=== PATIENT | female | born 1960 | race Two or more races ===

== ENCOUNTER 2017-12-07 22:25 | Inpatient (IN) | payer OTHER ==
[~2017-12-07] VITALS: Ht 154.9 cm; Wt 74.4 kg
[2017-12-08 01:30] VITALS: BP 159/93
[2017-12-08 01:35] VITALS: BP 159/93
--- NOTE | 2017-12-08 01:35 | NUR ---
MS RN OPENING NOTES: RECEIVED PT FROM [facility] AND DIRECT ADMIT FROM [facility]. PT ON ROOM AIR AND TOLERATING WELL. PT IN MILD DISTRESS SHE IS FEELING NAUSEOUS. PT ALSO HAS 8/10 LEFT LOWER ABDOMEN PAIN. PT HAS IV ON L WRIST #20G AND IS PATENT AND INTACT. CURRENTLY H/L AND AWAITING FOR ADMITTING ORDERS. PT IS A/OX4. CALL LIGHT WITHIN PT'S REACH. BED KEPT IN LOW, LOCKED POSITION, AND SIDE RAILS X 2UP. WILL CONTINUE TO MONITOR PT.
[2017-12-08] MEDS ORDERED: AMLO5TAB2 PO (01:59)
[2017-12-08] MEDS ORDERED: NICO-760 TD (02:03)
--- NOTE | 2017-12-08 02:30 | NUR ---
MS RN NOTES: SPOKE WITH DR. SCOTT. HE IS AWARE PT IS HERE. HE WILL BE WORKING ON ADMITTING ORDERS SOON. AWARE THAT BP IS 159/93 HR 78. AWAITING FOR ADMITTING ORDERS FOR NOW.
[2017-12-08] MEDS ORDERED: Z GUARD REMEDY 2 OZ OINT TP PRN (03:00)
[2017-12-08] MEDS ORDERED: HYDROCODONE/APAP 5/325MG 1 EACH TABLET PO PRN (03:00)
[2017-12-08] MEDS ORDERED: MORPHINE SULFATE INJ 2 MG/ML DISP.SYRIN IV PRN ×2 (03:00→21:00)
[2017-12-08] MEDS ORDERED: MAG HYDROX/AL HYDROX/SIMETH 30 ML UDC PO PRN (03:00)
[2017-12-08] MEDS ORDERED: ZOLPIDEM TARTRATE 5 MG TABLET PO PRN (03:00)
[2017-12-08] MEDS ORDERED: MAGNESIUM HYDROXIDE 30 ML UDC PO PRN (03:00)
[2017-12-08] MEDS ORDERED: ACETAMINOPHEN 325 MG TABLET PO PRN (03:00)
[2017-12-08] MEDS ORDERED: LEVOFLOXACIN 500 MG /D5W 100ML 100 ML IV ONE (03:15)
[2017-12-08] MEDS: LEVOFLOXACIN 500 MG /D5W 100ML 500 MG in PREMIX 1 EA IV SCH ×2 (03:27→20:02)
[2017-12-08] MEDS: ONDANSETRON HCL/PF 4 MG/2 ML VIAL IVP PRN ×2 (03:51→10:50)
[2017-12-08] MEDS ORDERED: MORPHINE SULFATE INJ 10 MG/ML DISP.SYRIN IV PRN (04:00)
--- NOTE | 2017-12-08 05:00 | NUR ---
MS RN NOTES: PT COMPLAINING OF L LOWER ABDOMEN 8/10 PAIN. PT WAS ADMINISTERED MORPHINE 2MG IV. WILL CONTINUE TO MONITOR PT.
[2017-12-08] MEDS ORDERED: METRONIDAZOLE 500MG/ NS 100ML 100 ML IV ONE (05:17)
[2017-12-08] MEDS: METRONIDAZOLE 500MG/ NS 100ML 500 MG in PREMIX 1 EA IV SCH ×3 (05:26→21:13)
--- NOTE | 2017-12-08 06:40 | NUR ---
MS RN CLOSING NOTES: ALL NEEDS WERE ATTENDED AND ANTICIPATED FOR. PT ASLEEP AT THIS TIME. PT HAS IV ON R HAND #22G AND IS BEING INFUSED WITH IV NS AT 100ML/HR. PT ON ROOM AIR AND TOLERATING WELL. CALL LIGHT WITHIN PT'S REACH. BED KEPT IN LOW, LOCKED POSITION, AND SIDE RAILS X 2UP. WILL ENDORSE TO AM NURSE FOR MOHINDER.
--- NOTE | 2017-12-08 08:00 | NUR ---
MS RN AM NOTES: RECEIVED PT VOMITING IN THE EMESIS BAG WITH CLEAR YELLOW EMESIS.ON ROOM AIR AND TOLERATING WELL. PT IN MILD DISTRESS SHE IS FEELING NAUSEOUS. WILL GIVE ZOFRAN IV PRN WHEN IT IS DUE.PT HAS IV ON L WRIST #20G AND IS PATENT AND INTACT. WITH ONGOING IVF OF NS AT 100 ML/HR INFUSING WELL.PT IS A/OX4. WITH BRP.ON NPO.CALL LIGHT WITHIN PT'S REACH. BED KEPT IN LOW, LOCKED POSITION, AND SIDE RAILS X 2UP. WILL CONTINUE TO MONITOR PT.
[2017-12-08 08:29] VITALS: BP 138/74
[2017-12-08] MEDS ORDERED: IV NS 0.9% 1,000 ML BAG IV SCH (09:00)
[2017-12-08 12:19] LABS: BASOPHILS # (AUTO) 0.1 /CMM (0.0-0.2); BASOPHILS % (AUTO) 0.4 % (0.0-2.0); EOSINOPHILS % (AUTO) 0.1 % (0.0-6.0); HEMATOCRIT 43 % (33-45); HEMOGLOBIN 14.3 g/dL (11.5-14.8); LYMPHOCYTES # (AUTO) 1.5 /CMM (0.8-4.8); LYMPHOCYTES % (AUTO) 6.3 % (20.0-44.0); MEAN CORPUSCULAR HEMOGLOBIN 31 PG (26.0-33.0); MEAN CORPUSCULAR HGB CONC 33 g/dl (31.0-36.0); MEAN CORPUSCULAR VOLUME 94 fL (82-100); MONOCYTES # (AUTO) 0.7 /CMM (0.1-1.30); MONOCYTES % (AUTO) 2.9 % (2.0-12.0); NEUTROPHILS # (AUTO) 21.7 /CMM (1.8-8.9); NEUTROPHILS % (AUTO) 90.3 % (43.0-81.0); PLATELET COUNT (AUTO) 241 /CMM (150-450); RDW COEFFICIENT OF VARIATION 13.6 (11.5-15.0)
[2017-12-08 12:35] LABS: ALBUMIN 3.4 g/dL (3.4-5.0); BILIRUBIN,TOTAL 0.4 mg/dL (0.2-1.0); CALCIUM, SERUM 8.5 mg/dL (8.5-10.1); CREATININE 0.5 mg/dL (0.6-1.3); POTASSIUM 3.9 mmol/L (3.5-5.1); TOTAL PROTEIN, SERUM 7.4 g/dL (6.4-8.2)
[2017-12-08 13:13] LABS: BAND % (MANUAL) 1 % (0.0-5.0); EOSINOPHILS % (MANUAL) 1 % (0-4); LYMPHOCYTES % (MANUAL) 5 % (16-48); MONOCYTES % (MANUAL) 10 % (0-11.0); NEUTROPHILS % (MANUAL) 83 (42-76)
[2017-12-08] MEDS ORDERED: ONDANSETRON HCL/PF 4 MG/2 ML VIAL IVP PRN (14:00)
[2017-12-08] MEDS: ONDANSETRON HCL/PF 4 MG/2 ML VIAL IV PRN ×2 (16:41→23:19)
[2017-12-08] MEDS: LACTOBACILLUS RHAMNOSUS GG 1 EACH CAP.SPRINK PO SCH (16:41)
--- NOTE | 2017-12-08 17:14 | NUR ---
PT OCCASIONALLY FEELS NAUSEOUS BUT HAS NO EMESIS AT ALL SINCE 0800.PT TOOK THE LACTOBACILLUS CAPSULE AND A FEW SIPS OF WATER -TOLERATED WELL.WILL CONTINUE TO MONITOR.
[2017-12-08] MEDS: IV NS 0.9% 1,000 ML IV PRN (17:54)
--- NOTE | 2017-12-08 18:48 | NUR ---
PT RESTING COMFORTABLY STILL FEELING NAUSEOUS.WITH ONGOING IVF OF NS AT 100 ML/HR INFUSING WELL.ZOFRAN IV GIVEN PRN. CALL LIGHT PLACED WITHIN REACH.
--- NOTE | 2017-12-08 19:13 | NUR ---
MS RN OPENING NOTES: RECEIVED PT AND IS ASLEEP AT THIS TIME. PT IS A/OX4. PT IS ON ROOM AIR AND TOLERATING WELL. PT HAS IV AND IS BEING INFUSED WITH IV NS AT 100ML/HR. CALL LIGHT WITHIN PT'S REACH. BED KEPT IN LOW, LOCKED POSITION, AND SIDE RAILS X 2UP. WILL CONTINUE TO MONITOR PT.
[2017-12-08 20:00] VITALS: BP 181/103
[2017-12-08] MEDS ORDERED: MORPHINE SULFATE INJ 4 MG/ML DISP.SYRIN IV PRN (21:00)
[2017-12-08] MEDS ORDERED: MORPHINE SULFATE INJ 4 MG/ML DISP.SYRIN ONE (21:08)
--- NOTE | 2017-12-08 21:28 | NUR ---
MS RN NOTES: BLOOD PRESSURE ELEVATED INITIALLY. OFFERED PT PAIN MEDICATION BUT IS REFUSING AT THIS TIME. "I AM OK FOR NOW." WILL OFFER AGAIN AT ANOTHER TIME.
[2017-12-08 23:00] VITALS: BP 166/99
--- NOTE | 2017-12-08 23:19 | NUR ---
MS RN NOTES: PT COMPLAINING OF 8/10 L LOWER ABDOMEN PAIN. PT STILL NAUSEOUS WELL. PT WAS ADMINISTERED ZOFRAN 4MG VIA IV AND WAS ALSO THEN ADMINISTERED MORPHINE 2MG VIA IV. WILL CONTINUE TO MONITOR PT.
--- NOTE | 2017-12-09 01:40 | NUR ---
MS RN NOTES: SPOKE WITH DR. SCOTT. INFORMED HIM THAT PT'S BP IS STILL ELEVATED. LATEST ONE IS 166/69 HR 75. PT STILL COMPLAINING OF PAIN. ALSO, PT REQUESTING TO SLEEP. PER DR. SCOTT, OK TO CHANGE MORPHINE 2MG FREQUENCY TO Q3HR PRN. ALSO, OK TO GIVE AMBIEN 5MG PO. DR. SCOTT AWARE THAT PT IS NPO. OK TO TRY AMBIEN 5MG ONE TIME.
--- NOTE | 2017-12-09 01:47 | NUR ---
MS RN NOTES: PT REQUESTING FOR A SLEEP AID SHE REALLY WANTS TO SLEEP. PT WAS ADMINISTERED AMBIEN 5MG PO. PER DR. SCOTT, OK TO GIVE AMBIEN 5MG PO ONE TIME. HE IS AWARE THAT PT IS NPO AND THAT PT GOT ZOFRAN ABOUT 2 HOURS AGO. WILL CONTINUE TO MONITOR.
[2017-12-09] MEDS: METRONIDAZOLE 500MG/ NS 100ML 500 MG in PREMIX 1 EA IV SCH ×3 (04:02→21:52)
[2017-12-09 06:15] VITALS: BP 136/92
--- NOTE | 2017-12-09 06:23 | NUR ---
MS RN CLOSING NOTES: ALL NEEDS WERE ATTENDED AND ANTICIPATED FOR. PT IS RESTING IN BED COMFORTABLY AND FEELS WAY MUCH BETTER. PT NOT NAUSEOUS. PT VERBALIZED NO PAIN. PT HAS IV AND IS BEING INFUSED WITH IV NS AT 100ML/HR. CALL LIGHT WITHIN PT'S REACH. BED KEPT IN LOW, LOCKED POSITION, AND SIDE RAILS X 2 UP. PT'S DIET ADVANCED THIS MORNING SHE STATES SHE FEELS WAY MUCH BETTER. WILL ENDORSE TO AM NURSE FOR MOHINDER.
[2017-12-09 07:01] LABS: BASOPHILS % (AUTO) 0.2 % (0.0-2.0); EOSINOPHILS % (AUTO) 0.1 % (0.0-6.0); HEMATOCRIT 42 % (33-45); HEMOGLOBIN 13.7 g/dL (11.5-14.8); LYMPHOCYTES # (AUTO) 1.9 /CMM (0.8-4.8); LYMPHOCYTES % (AUTO) 11.3 % (20.0-44.0); MEAN CORPUSCULAR HEMOGLOBIN 31 PG (26.0-33.0); MEAN CORPUSCULAR HGB CONC 33 g/dl (31.0-36.0); MEAN CORPUSCULAR VOLUME 95 fL (82-100); MONOCYTES # (AUTO) 0.9 /CMM (0.1-1.30); MONOCYTES % (AUTO) 5.5 % (2.0-12.0); NEUTROPHILS % (AUTO) 82.9 % (43.0-81.0); PLATELET COUNT (AUTO) 310 /CMM (150-450); RDW COEFFICIENT OF VARIATION 13.2 (11.5-15.0); RED BLOOD CELL COUNT(AUTO) 4.45 MIL/uL (4.0-5.2); WHITE BLOOD COUNT (AUTO) 16.9 K/uL (4.3-11.0)
[2017-12-09 07:14] LABS: CALCIUM, SERUM 8.1 mg/dL (8.5-10.1); CREATININE 0.5 mg/dL (0.6-1.3); PHOSPHORUS 2.9 mg/dL (2.5-4.9); POTASSIUM 3.3 mmol/L (3.5-5.1)
[2017-12-09 08:00] VITALS: BP 165/98
--- NOTE | 2017-12-09 08:00 | NUR ---
MS RN AM NOTES: PT IS RESTING IN BED COMFORTABLY AND FEELS WAY MUCH BETTER. PT NOT NAUSEOUS. PT VERBALIZED NO PAIN. PT HAS IV AND IS BEING INFUSED WITH IV NS AT 100ML/HR. CALL LIGHT WITHIN PT'S REACH. BED KEPT IN LOW, LOCKED POSITION, AND SIDE RAILS X 2 UP. PT'S DIET ADVANCED THIS MORNING SHE STATES SHE FEELS WAY MUCH BETTER. WILL CONTINUE TO MONITOR.
[2017-12-09] MEDS: LACTOBACILLUS RHAMNOSUS GG 1 EACH CAP.SPRINK PO SCH ×2 (08:44→16:56)
[2017-12-09] MEDS: IV NS 0.9% 1,000 ML IV PRN ×2 (08:48→20:34)
[2017-12-09] MEDS ORDERED: POTASSIUM CHLORIDE 20 MEQ TAB.PRT.SR PO SCH (10:30)
[2017-12-09] MEDS: ONDANSETRON HCL/PF 4 MG/2 ML VIAL IV PRN ×2 (12:09→19:51)
--- NOTE | 2017-12-09 12:13 | NUR ---
CLARIFIED KDUR 20 MEQ PO GIVEN EARLIER-STILL TO ADMINISTER ANOTHER KDUR 20 ME[address] PO TAB [address] MARSHALL.
[2017-12-09] MEDS ORDERED: hydrALAZINE HCL 25 MG TABLET PO PRN (12:30)
[2017-12-09] MEDS ORDERED: POTASSIUM CHLORIDE 20 MEQ TAB.PRT.SR PO ONE (12:30)
[2017-12-09] MEDS: NICOTINE PATCH (21MG) 21 MG PATCH.TD24 TD SCH (13:30)
[2017-12-09] MEDS: AMLODIPINE BESYLATE 5 MG TABLET PO SCH (13:31)
[2017-12-09 16:13] VITALS: BP 163/95
--- NOTE | 2017-12-09 18:39 | NUR ---
PT RESTING IN BED EXPRESSED SO MUCH ANXIETY WORRIED ABOUT HER CONDITION.EXPLAINED THE IMPROVEMENT OF HER WBC TRENDING DOWN AND ALSO THE IV ATB SHE IS GETTING.ON NPO EXCEPT WITH MEDS AND ICE CHIPS.JUST FEELS NAUSEOUS WITH NO VOMITING EPISODE.ZOFRAN GIVEN PRN.CALL LIGHT PLACED WITHIN REACH.
--- NOTE | 2017-12-09 19:40 | NUR ---
MS RN INITIAL NOTES Received patient from MS 201-1 to MS 309-2. A/O X4 able to communicate needs. NPO except meds, may use ice chips. With patent peripheral IV line RFA #22 SL. With complaint of nausea and abdominal pain. BP noted high 178/108mmHg. Kept on bed comfortably. Administered Morphine for pain, Zofran for nausea and Hydralazine for increased BP. Will continue to monitor accordingly.
[2017-12-09 20:00] VITALS: BP 178/108
[2017-12-09] MEDS: MORPHINE SULFATE INJ 4 MG/ML DISP.SYRIN IV PRN (20:03)
[2017-12-09] MEDS: LEVOFLOXACIN 500 MG /D5W 100ML 500 MG in PREMIX 1 EA IV SCH (20:34)
[2017-12-10] MEDS: ONDANSETRON HCL/PF 4 MG/2 ML VIAL IV PRN ×2 (01:39→10:25)
[2017-12-10] MEDS: MORPHINE SULFATE INJ 4 MG/ML DISP.SYRIN IV PRN ×2 (01:40→08:40)
--- NOTE | 2017-12-10 01:40 | NUR ---
MS RN NOTES Patient claimed nauseated and having abdominal pain 10/14. Medicated Morphine for pain and Zofran for nausea as ordered. Will continue to minotor.
--- NOTE | 2017-12-10 01:53 | NUR ---
MS TERRELL NOTES Patient complained nausea and abdominal pain. Repositioned patient comfortably. Administered Morphine for pain and Zofran for nausea. Will continue to monitor. Addendum: 12/10/17 at 0641 by EDWARDO ENRIQUE RN Duplicate documentation.
[2017-12-10] MEDS: IV NS 0.9% 1,000 ML IV PRN (03:21)
[2017-12-10] MEDS: METRONIDAZOLE 500MG/ NS 100ML 500 MG in PREMIX 1 EA IV SCH ×3 (05:07→22:42)
--- NOTE | 2017-12-10 06:39 | NUR ---
MS RN CLOSING NOTES Patient asleep on low-Kaur's position, with patent peripheral line RFA G#22 with NS infusing well @ 100ml/hr as ordered. Nauseated all night, kept on NPO except meds and ice chips. Medicated for nausea and pain, noted to be effective. All due meds given as ordered, no ASE noted. Able to ambulate independently to toilet without problem. All needs attended. Kept call light at bedside at all times. Afebrile the whole shift. Endorsed to the next shift.
[2017-12-10 06:46] LABS: CALCIUM, SERUM 8.4 mg/dL (8.5-10.1); CREATININE 0.5 mg/dL (0.6-1.3); MAGNESIUM 1.9 mg/dL (1.8-2.4); PHOSPHORUS 2.4 mg/dL (2.5-4.9); POTASSIUM 3.4 mmol/L (3.5-5.1)
--- NOTE | 2017-12-10 07:15 | NUR ---
MS RN NOTES PATIENT RECEIVED RESTING INSIDE ROOM. SLEEPING, EASILY AROUSABLE THROUGH VERBAL AND TACTILE STIMULI. ALERT AND ORIENTED X 4. BREATHING EVEN AND UNLABORED. NO SOB OR ACUTE DISTRESS NOTED. NO CHANGES IN LOC NOTED. PATIENT DENIES ANY PAIN OR DISCOMFORT. CONTINUE NPO STATUS EXCEPT MEDICATIONS. IV INTACT AND PATENT. WILL CONTINUE TO MONITOR. BED LOCKED AND IN LOW POSITION. BILATERAL UPPER SIDE RAILS UP AND LOCKED. CALL LIGHT WITHIN EASY REACH
[2017-12-10 08:00] VITALS: BP 155/96
[2017-12-10 08:17] LABS: BASOPHILS # (AUTO) 0.2 /CMM (0.0-0.2); BASOPHILS % (AUTO) 1.1 % (0.0-2.0); EOSINOPHILS % (AUTO) 0.1 % (0.0-6.0); HEMATOCRIT 46 % (33-45); HEMOGLOBIN 14.8 g/dL (11.5-14.8); LYMPHOCYTES # (AUTO) 1.5 /CMM (0.8-4.8); LYMPHOCYTES % (AUTO) 11.2 % (20.0-44.0); MEAN CORPUSCULAR HEMOGLOBIN 31 PG (26.0-33.0); MEAN CORPUSCULAR HGB CONC 32 g/dl (31.0-36.0); MEAN CORPUSCULAR VOLUME 95 fL (82-100); MONOCYTES # (AUTO) 0.7 /CMM (0.1-1.30); MONOCYTES % (AUTO) 5.3 % (2.0-12.0); NEUTROPHILS # (AUTO) 11.3 /CMM (1.8-8.9); NEUTROPHILS % (AUTO) 82.3 % (43.0-81.0); PLATELET COUNT (AUTO) 324 /CMM (150-450); RDW COEFFICIENT OF VARIATION 13.4 (11.5-15.0); RED BLOOD CELL COUNT(AUTO) 4.85 MIL/uL (4.0-5.2); WHITE BLOOD COUNT (AUTO) 13.8 K/uL (4.3-11.0)
[2017-12-10] MEDS: AMLODIPINE BESYLATE 5 MG TABLET PO SCH (08:38)
[2017-12-10] MEDS: LACTOBACILLUS RHAMNOSUS GG 1 EACH CAP.SPRINK PO SCH ×2 (08:38→16:47)
[2017-12-10] MEDS: NICOTINE PATCH (21MG) 21 MG PATCH.TD24 TD SCH (08:39)
[2017-12-10] MEDS ORDERED: AMLODIPINE BESYLATE 5 MG TABLET PO ONE (10:00)
[2017-12-10] MEDS: Magnesium 1GM/D5W 100ML PREMIX 100 ML IV SCH ×2 (10:25→11:26)
[2017-12-10] MEDS: Potassium Phosphate meq 11 MEQ in IV D5W 100 ML IV SCH ×2 (13:57→19:00)
[2017-12-10 16:00] VITALS: BP 123/74
--- NOTE | 2017-12-10 18:40 | NUR ---
MS RN NOTES PATIENT RESTING INSIDE ROOM. AWAKE, ALERT AND ORIENTED X 4, VERBALLY RESPONSIVE AND RESPONDS TO VERBAL AND TACTILE STIMULI. ABLE TO MAKE NEEDS KNOWN AND FOLLOW SIMPLE INSTRUCTIONS. BREATHING EVEN AND UNLABORED. NO SOB OR ACUTE DISTRESS AT THIS TIME. PATIENT DENIES ANY PAIN OR DISCOMFORT. NO CHANGES IN LOC NOTED. PATIENT CALM AND RELAXED. WILL ENDORSE TO INCOMING SHIFT FOR MOHINDER. BED LOCKED AND IN LOW POSITION. BILATERAL UPPER SIDE RAILS UP AND LOCKED. CALL LIGHT WITHIN EASY REACH
--- NOTE | 2017-12-10 19:30 | NUR ---
MS LISA INITIAL NOTES RECEIVED REPORT FROM AM NURSE WHILE CHECKING THE PATIENT , SHE AWAKE AND ALERT WATCHING TV AT THIS TIME WITH K-PHOSPATE INFUSING AT 35ML/HR. PT DENIES ANY PAIN OR ANY DISCOMFORT. NO N/V WELL. PT AWARE THAT SHE HAVE BLOOD TEST IN AM . I ALSO TOLD HER ABOUT HER MEDICATION TONIGHT AND PT UNDERSTOOD WELL. KEPT HER WARM AND COMFORTABLE AT ALL TIMES. PLACE CALL LIGHT AT REACH. WILL CONTINUE MONITORING.
[2017-12-10 20:00] VITALS: BP 124/76
[2017-12-10] MEDS: LEVOFLOXACIN 500 MG /D5W 100ML 500 MG in PREMIX 1 EA IV SCH (21:17)
--- NOTE | 2017-12-10 23:00 | NUR ---
MS LISA NOTES K -PHOSPATE IVP BAG JUST FINISHED INFUSING THEN STARTED LEVAQUIN IVP BAG , AFTER 30 MINUTES INFUSING PATIENT CALLED SAYING SHE FEEL ITCHY ON HER ARM AND SEEN SOME REDNESS LIKE A BUMP ON HER RIGHT FOREARM BUT PT DENIES ANY PAIN OR ANY SOB . NO SIGNS OF ANY ACUTE DISTRESS NOTED. WHEN I CHECKED IF ITS THE FIRST TIME SHE GOT THIS ANTIBIOTIC FOUND OUT THIS IS HER 4TH DOSE . HOLD THE LEVAQUIN FOR A WHILE AND TOLD HER THAT I WILL CALLED THE VENEER PRODUCTION MACHINE OPERATOR MD TO LET HIM KNOW.
--- NOTE | 2017-12-10 23:30 | NUR ---
PREPARED FOODS SUPERVISOR NOTES SPOKE TO CLAUDIA CASTELLANOS/ IFTIKHAR RELATE TO HIM WHAT HAPPENED TO THE PATIENT WHILE GETTING LEVAQUIN. GOT ORDERED TO GIVE BENADRYL 25MG IVP AND PEPCID 20 MG IVP THEN ITS OK TO CONTINUE TO INFUSE THE LEVAQUIN. CONTINUE MONITORING THE PATIENT FOR ANY POSSIBLE REACTION.
[2017-12-10] MEDS ORDERED: diphenhydrAMINE HCL 50 MG/ML VIAL IV STA (23:32)
[2017-12-11] MEDS ORDERED: FAMOTIDINE/PF INJ 20 MG/2 ML VIAL IV ONE
--- NOTE | 2017-12-11 01:59 | NUR ---
MS ORACLE APPLICATIONS ANALYST NOTES PT SLEEPING COMFORTABLY IN BED AFTER BENADRYL GIVEN , DUE LEVAQUIN FINISHED . KEPT HER WARM AND COMFORTABLE AT ALL TIMES. WILL CONTINUE MONITORING. PLACE CALL LIGHT AT REACH.
[2017-12-11] MEDS: IV NS 0.9% 1,000 ML IV PRN (05:17)
[2017-12-11] MEDS: METRONIDAZOLE 500MG/ NS 100ML 500 MG in PREMIX 1 EA IV SCH (05:40)
[2017-12-11 06:55] LABS: BASOPHILS % (AUTO) 0.2 % (0.0-2.0); EOSINOPHILS % (AUTO) 1.1 % (0.0-6.0); HEMATOCRIT 44 % (33-45); HEMOGLOBIN 14.4 g/dL (11.5-14.8); LYMPHOCYTES # (AUTO) 1.9 /CMM (0.8-4.8); LYMPHOCYTES % (AUTO) 18.3 % (20.0-44.0); MEAN CORPUSCULAR HEMOGLOBIN 31 PG (26.0-33.0); MEAN CORPUSCULAR HGB CONC 33 g/dl (31.0-36.0); MEAN CORPUSCULAR VOLUME 95 fL (82-100); MONOCYTES # (AUTO) 0.8 /CMM (0.1-1.30); MONOCYTES % (AUTO) 7.8 % (2.0-12.0); NEUTROPHILS # (AUTO) 7.4 /CMM (1.8-8.9); NEUTROPHILS % (AUTO) 72.6 % (43.0-81.0); PLATELET COUNT (AUTO) 325 /CMM (150-450); RDW COEFFICIENT OF VARIATION 12.9 (11.5-15.0); RED BLOOD CELL COUNT(AUTO) 4.61 MIL/uL (4.0-5.2); WHITE BLOOD COUNT (AUTO) 10.3 K/uL (4.3-11.0)
--- NOTE | 2017-12-11 07:00 | NUR ---
MS GAS METER REPAIRER CLOSING NOTES PT REMAINS SLEEPING COMFORTABLY IN BED WITHOUT ANY ACUTE DISTRESS NOTED. ALL DUE MEDS GIVEN AND ALL NEEDS MET. IVF STILL INFUSING ON HER RIGHT FOREARM. NO REDNESS NOTED. KEPT HER COMFORTABLE AT ALL TIMES. ENDORSE TO AM NURSE FOR CONTINUITY OF CARE. PLACE CALL LIGHT AT REACH.
--- NOTE | 2017-12-11 07:10 | NUR ---
RN NOTES PT IS LAYING DOWN IN BED, AWAKE AND ALERT, RESTING COMFORTABLY. PT ON RA, RESPIRATIONS ARE EVEN AND UNLABORED. IV ON RFA INTACT AND RUNNING NS @ 50ML/HR. NO SIGNS OF DISTRESS NOTED. SAFETY MEASURES ARE IN PLACE, CALL IS IN REACH. WILL CONTINUE TO MONITOR.
[2017-12-11 07:20] LABS: CREATININE 0.6 mg/dL (0.6-1.3); MAGNESIUM 2.1 mg/dL (1.8-2.4); PHOSPHORUS 3.5 mg/dL (2.5-4.9); POTASSIUM 3.3 mmol/L (3.5-5.1)
[2017-12-11 08:00] VITALS: BP 108/76
[2017-12-11] MEDS: NICOTINE PATCH (21MG) 21 MG PATCH.TD24 TD SCH (08:24)
[2017-12-11] MEDS: LACTOBACILLUS RHAMNOSUS GG 1 EACH CAP.SPRINK PO SCH ×2 (08:24→17:00)
[2017-12-11] MEDS ORDERED: AMLODIPINE BESYLATE 5 MG TABLET PO SCH (09:00)
[2017-12-11 09:30] VITALS: BP 113/64
[2017-12-11 10:00] VITALS: BP 121/60
[2017-12-11 11:00] VITALS: BP 114/51
[2017-12-11] MEDS ORDERED: POTASSIUM CHLORIDE 20 MEQ TAB.PRT.SR PO SCH (11:00)
[2017-12-11] MEDS: DOCUSATE SODIUM 250 MG CAPSULE PO SCH ×2 (11:11→17:00)
[2017-12-11] MEDS ORDERED: POLYETHYLENE GLYCOL 3350 17 GM POWD.PACK PO SCH ×2 (11:30→22:00)
[2017-12-11] MEDS ORDERED: LEVOFLOXACIN (500MG) 500 MG TABLET PO SCH (12:00)
[2017-12-11 16:00] VITALS: BP 112/74
--- NOTE | 2017-12-11 18:00 | NUR ---
RN NOTES PT WAS DISCHARGED HOME IN STABLE CONDITION. IV AND ID BAND WERE REMOVED. PT WAS GIVEN DISCHARGE INSTRUCTIONS AND WAS TOLD TO CAN MAKER PRESCRIPTION AT PHARMACY AND FOLLOW UP WITH PCP WITHIN 1-2 WEEKS OF DISCHARGE. PT VERBALIZED UNDERSTANDING AND STATED THAT SHE WOULD GET HER PRESCRIPTION AND MAKE THE APPOINTMENT AT HOME. PT WAS TRANSPORTED HOME IN PRIVATE CAR, ACCOMPANIED BY FAMILY MEMBER. ALL BELONGINGS WERE RETURNED TO PT AND BELONGINGS LIST AND DISCHARGE PAPERS WERE SIGNED.
== END 2017-12-11 18:10 | disposition home or self-care (01) | DRG 244 ==
LOC: MEDSG2 12-08 01:38 → MED 12-09 19:45
PROVIDERS: ADMIT Family Medicine; ATTEND Family Medicine
DX: K57.92 Diverticulitis of intestine, part unspecified, without perforation or abscess without bleeding (principal); E66.01 Morbid (severe) obesity due to excess calories; E78.5 Hyperlipidemia, unspecified; I10 Essential (primary) hypertension; Z68.31 Body mass index [BMI] 31.0-31.9, adult; F17.200 Nicotine dependence, unspecified, uncomplicated; Z79.899 Other long term (current) drug therapy; Z86.19 Personal history of other infectious and parasitic diseases
CPT/HCPCS: 36415; 80048-TC; 80053-TC; 80061-TC; 83735-TC; 84100-TC; 85025-TC; 87081-TC; A4216; J1200; J1956; J2270; J2405; J3475; J3490; J7030; J7042; J7060